=== PATIENT | male | born 1950 | race Caucasian/White ===

== ENCOUNTER → 2017-05-28 | Outpatient (CLI) | payer MEDICARE, OTHER ==
[~2017-05-28] MED LIST: ASPI81TA50 PO
== END | disposition home or self-care (01) ==
LOC: STAR 09:13
PROVIDERS: ATTEND Surgery
DX: Z01.818 Encounter for other preprocedural examination (principal)
CPT/HCPCS: 93005

== ENCOUNTER 2017-06-04 06:24 | Day surgery (SDC) | payer MEDICARE, OTHER ==
[~2017-06-04] VITALS: Ht 185.4 cm; Wt 87.0 kg
[~2017-06-04 06:24] MED LIST changes: +BUPIVACAINE/PF-EPI 0.5% 1:200K ONE
[2017-06-04 07:18] VITALS: BP 119/75
[2017-06-04] MEDS ORDERED: LACTATED RINGERS 1,000 ML IV SCH (07:46)
[2017-06-04] MEDS ORDERED: MIDAZOLAM 1 MG/ML, 2ML ONE (07:59)
[2017-06-04] MEDS ORDERED: FENTANYL PF 250 MCG/5ML ONE (07:59)
[2017-06-04] MEDS ORDERED: KETOROLAC 30 MG/1 ML ONE (09:27)
[2017-06-04] MEDS ORDERED: ONDANSETRON 2MG/ML, 2ML ONE (09:27)
[2017-06-04] MEDS ORDERED: DEXAMETHASONE 4 MG/ML, 1ML ONE (09:27)
[2017-06-04] MEDS ORDERED: CEFAZOLIN 1,000 MG ONE (09:27)
[2017-06-04] MEDS ORDERED: PROPOFOL 10 MG/ML, 20ML ONE (09:27)
[2017-06-04] MEDS ORDERED: HYDROcodone/APAP 7.5-325MG/15ML UDC PO PRN (09:30)
[2017-06-04] MEDS ORDERED: hydrALAzine 20 MG/ML, 1ML IV PRN (09:30)
[2017-06-04] MEDS ORDERED: ACETAMINOPHEN 325 MG TABLET PO PRN (09:30)
[2017-06-04] MEDS ORDERED: LABETALOL 5MG/ML, 20ML IV PRN (09:30)
[2017-06-04] MEDS ORDERED: ALBUTEROL SULFATE 2.5 MG/3 ML NPPB PRN (09:30)
[2017-06-04] MEDS ORDERED: EPHEDRINE 50 MG/ML, 1ML IVPush PRN (09:30)
[2017-06-04] MEDS ORDERED: HYDROmorphone 1 MG/ML, 1ML IV PRN (09:30)
[2017-06-04] MEDS ORDERED: METOPROLOL 1 MG/ML, 5ML IV PRN (09:30)
[2017-06-04] MEDS ORDERED: OXYcodone 5 MG/5 ML ORAL.SOL UDC PO PRN (09:30)
[2017-06-04] MEDS ORDERED: PROMETHAZINE 25 MG/ML, 1ML IV PRN (09:30)
[2017-06-04] MEDS ORDERED: MEPERIDINE/PF 25MG/0.5ML IVPush PRN (09:30)
[2017-06-04] MEDS ORDERED: MIDAZOLAM 1 MG/ML, 2ML IV PRN (09:30)
[2017-06-04] MEDS ORDERED: FENTANYL PF 100 MCG/2ML IV PRN (09:30)
[2017-06-04] MEDS ORDERED: ONDANSETRON 2MG/ML, 2ML IVPush PRN (09:30)
[2017-06-04] MEDS ORDERED: ACETAMINOPHEN 650 MG/20.3 ML UDC ONE (10:37)
[2017-06-04] MEDS ORDERED: ACETAMINOPHEN 325 MG/10.15 ML UDC ONE (10:37)
[2017-06-04] MEDS ORDERED: OXYcodone 5 MG/5 ML ORAL.SOL UDC ONE (10:37)
== END 2017-06-04 12:35 ==
LOC: OUT 06:24
PROVIDERS: ATTEND Surgery
DX: K40.90 Unilateral inguinal hernia, without obstruction or gangrene, not specified as recurrent (principal); D17.6 Benign lipomatous neoplasm of spermatic cord; Z98.890 Other specified postprocedural states; Z72.89 Other problems related to lifestyle
CPT/HCPCS: 49505; C1781; J0690; J1100; J1885; J2250; J2405; J2704; J3010; J7120

== ENCOUNTER → 2018-09-12 | Outpatient (CLI) | payer MEDICARE, OTHER ==
[~2018-09-12] MED LIST changes: -BUPIVACAINE/PF-EPI 0.5% 1:200K ONE; +CHOL100012 PO; +None per pt
== END | disposition home or self-care (01) ==
LOC: STAR 12:49
PROVIDERS: ATTEND Surgery
DX: Z01.818 Encounter for other preprocedural examination (principal); K40.90 Unilateral inguinal hernia, without obstruction or gangrene, not specified as recurrent
CPT/HCPCS: 93005

== ENCOUNTER 2018-09-23 05:55 | Day surgery (SDC) | payer MEDICARE, OTHER ==
[~2018-09-23] VITALS: Ht 182.9 cm; Wt 80.0 kg
[2018-09-23] MEDS ORDERED: LACTATED RINGERS 1,000 ML IV SCH (06:06)
[2018-09-23 06:07] VITALS: BP 127/75
[2018-09-23] MEDS ORDERED: BUPIVACAINE/PF 0.5% ONE (06:59)
[2018-09-23] MEDS ORDERED: EPINEPHRINE 1 MG/ML, 1ML ONE (07:00)
[2018-09-23] MEDS ORDERED: FENTANYL PF 100 MCG/2ML ONE (07:02)
[2018-09-23] MEDS ORDERED: PROPOFOL 10 MG/ML, 20ML ONE (07:29)
[2018-09-23] MEDS ORDERED: DEXAMETHASONE 4 MG/ML, 1ML ONE (07:29)
[2018-09-23] MEDS ORDERED: CEFAZOLIN 1,000 MG ONE (07:29)
[2018-09-23] MEDS ORDERED: ONDANSETRON 2MG/ML, 2ML ONE (07:29)
[2018-09-23] MEDS ORDERED: KETOROLAC 30 MG/1 ML ONE (07:29)
[2018-09-23] MEDS ORDERED: PROCHLORPERAZINE 5 MG/ML, 2ML IV PRN (07:30)
[2018-09-23] MEDS ORDERED: HYDROmorphone 1 MG/ML, 1ML IV PRN (07:30)
[2018-09-23] MEDS ORDERED: GABAPENTIN 300 MG CAPSULE PO ONE (07:30)
[2018-09-23] MEDS ORDERED: DIPHENHYDRAMINE 50 MG/ML, 1ML IVPush PRN (07:30)
[2018-09-23] MEDS ORDERED: OXYcodone 5 MG/5 ML ORAL.SOL UDC PO PRN (07:30)
[2018-09-23] MEDS ORDERED: ACETAMINOPHEN 500 MG TABLET PO ONE (07:30)
[2018-09-23] MEDS ORDERED: MEPERIDINE/PF 25MG/0.5ML IVPush PRN (07:30)
[2018-09-23] MEDS ORDERED: FENTANYL PF 100 MCG/2ML IV PRN (07:30)
== END 2018-09-23 10:50 | disposition home or self-care (01) ==
LOC: OUT 05:55
PROVIDERS: ATTEND Surgery
DX: K40.90 Unilateral inguinal hernia, without obstruction or gangrene, not specified as recurrent (principal); D17.6 Benign lipomatous neoplasm of spermatic cord; Z98.890 Other specified postprocedural states; Z85.828 Personal history of other malignant neoplasm of skin
CPT/HCPCS: 49505; C1781; J0171; J0690; J1100; J1885; J2405; J2704; J3010; J3490; J7120